=== PATIENT | male | born 1975 | race Caucasian/White ===

== ENCOUNTER 2022-10-29 12:09 | Outpatient (OUT) | payer OTHER, SELFPAY ==
--- NOTE | 2022-10-29 | XR_ITS ---
The [address] [address] Patient Name: PATRICIA CASILLAS MRN: [id number] date: 1975 Sex: M Assigned Patient Location: RAD Current Patient Location: [facility] Accession/Order Number: [id number] Exam Date: 10/29/2022 12:40 Report Date: 10/29/2022 13:52 At the request of: VIVI MENESES Procedure: XR calcaneus RT min 2V EXAM: XR calcaneus RT min 2V HISTORY: RIGHT FOOT PAIN . The patient fell off a ladder 5 days ago. COMPARISON: None. TECHNIQUE: 2 views of the calcaneus were obtained. FINDINGS: There is no apparent acute fracture or dislocation. The joint spaces are intact. Soft tissue swelling posterior and the inferior to the posterior calcaneus is noted along the plantar aspect. IMPRESSION: No acute fracture or dislocation. No abnormal soft tissue calcifications are present. Soft tissue swelling is noted, particularly along the plantar aspect adjacent to the posterior calcaneus. Electronically authenticated by: CHANTE KENDALL Date: 10/29/2022 13:52
--- NOTE | 2022-10-29 12:19 | XR_ITS ---
The [address] [address] Patient Name: PATRICIA CASILLAS MRN: [id number] date: 1975 Sex: M Assigned Patient Location: [facility] Current Patient Location: [facility] Accession/Order Number: [id number] Exam Date: 10/29/2022 12:40 Report Date: 10/29/2022 13:50 At the request of: VIVI MENESES Procedure: XR ankle LT min 3V EXAM: XR ankle LT min 3V HISTORY: Ankle pain . The patient fell off a latter 5 days ago. COMPARISON: None. TECHNIQUE: 3 views of the left ankle were obtained. FINDINGS: There is no evidence of an acute fracture or dislocation. The mortise is intact. No osteochondral injury is identified. The subtalar joints are intact. No significant soft tissue swelling is identified. IMPRESSION: No acute fracture or dislocation. No significant focal osseous abnormality is identified. Electronically authenticated by: CHANTE KENDALL Date: 10/29/2022 13:50
--- NOTE | 2022-10-29 12:19 | XR_ITS ---
The [address] [address] Patient Name: PATRICIA CASILLAS MRN: [id number] date: 1975 Sex: M Assigned Patient Location: [facility] Current Patient Location: [facility] Accession/Order Number: [id number] Exam Date: 10/29/2022 12:40 Report Date: 10/29/2022 13:55 At the request of: VIVI MENESES Procedure: XR foot OCTAVIO min 3V EXAM: XR foot OCTAVIO min 3V HISTORY: Foot pain . Patient fell off a ladder 5 days ago. COMPARISON: None. TECHNIQUE: 3 views of each foot were obtained. FINDINGS: There is no evidence of an acute fracture or dislocation in either foot. A mild bunion deformity is noted with mild soft tissue swelling along the medial aspect of the first metatarsal head bilaterally. The joint spaces are otherwise relatively intact throughout each foot. No abnormal soft tissue calcification or radiopaque foreign body is identified. IMPRESSION: No acute fracture or dislocation. Mild bunion deformities are noted bilaterally. The joint spaces are intact bilaterally. Electronically authenticated by: CHANTE KENDALL Date: 10/29/2022 13:55
== END 2022-10-29 12:10 | disposition home or self-care (01) ==
LOC: RAD 12:14
PROVIDERS: PCP Family Medicine; Visit Provider Family Medicine
DX: M79.672 Pain in left foot (principal); M79.671 Pain in right foot; M25.572 Pain in left ankle and joints of left foot; M25.571 Pain in right ankle and joints of right foot; M21.612 Bunion of left foot; M21.611 Bunion of right foot
CPT/HCPCS: 73610; 73630; 73650

== ENCOUNTER 2023-02-11 11:42 | Outpatient (OUT) | payer SELFPAY | END 2023-02-11 11:43 | disposition home or self-care (01) | PROVIDERS: PCP Family Medicine; Visit Provider Family Medicine | DX: N45.1 Epididymitis (principal); R82.998 Other abnormal findings in urine | CPT/HCPCS: 36415; 86592; 86704; 86706; 86803; 87086; 87340; 87389; 87491; 87591; 87661 ==

== ENCOUNTER 2024-05-24 12:54 | Outpatient (OUT) | payer BC, SELFPAY | END 2024-05-24 12:55 | disposition home or self-care (01) | LOC: SLEEP 12:54 | PROVIDERS: PCP Family Medicine; Visit Provider Family Medicine | DX: G47.33 Obstructive sleep apnea (adult) (pediatric) (principal) | CPT/HCPCS: 95806 ==